=== PATIENT | female | born 1990 | race Caucasian/White ===

== ENCOUNTER → 2021-07-18 10:51 | Outpatient (BNVA) | payer MEDICAID, SELFPAY | PROVIDERS: PCP Family Medicine; Visit Provider Nurse Practitioner Gerontology ==

== ENCOUNTER 2023-08-04 13:21 | Outpatient (AMB) | payer BC, MEDICAID, SELFPAY ==
--- NOTE | 2023-08-04 13:31 | A.OFFPC_ITS ---
Vital Signs 08/04/23 13:35 Height 5 ft 5.5 in Weight 137 lb 6 oz BMI 22.5 BP 112/72 Blood Pressure Location Lt brachial Position Sitting Pulse 87 Pulse Source Pulse Oximeter Pulse Oximetry (%) 99 Oxygen Delivery Method Room Air Intake Visit Reasons: NPV requesting phy Intake Note: Patient is a new patient here to establish care for Hypothyroid. Transferring care from unknown. Medical records have not been requested and have not received. Dental Intern Required: No Control Systems Drafting Officer: Not Required per policy Accompanied by: Self / Same As Patient Allergies No Known Allergies [No Known Allergies*] Allergy (Verified 08/04/23 13:33) Tobacco use date assessed: 08/04/23 Dental Screening Dental Screen Date: 08/04/23 Did you have a dental visit in the last 12 months?: Yes Did you have a dental problem in the last 6 months where you did not have access to dental care?: No Was dental information given to patient?: Patient has dentist HPI HPI Comments History of Present Illness Details 32-year-old female past medical history significant for autoimmune thyroiditis. Patient currently on levothyroxine 100 mcg daily. Patient reports 17 weeks , takes vitamin daily, Follows with obgyn. Previously followed up Endocrinology, Patient reports thyroid function was WNL, refill sent on levothyroxine from obgyn. Patient denies need for refills at this time. Patient denies any acute concerns. Denies any chest pain, palpitations syncope. Does report some shortness of breath since states that OBGYN did her CBC and everything was within normal limits she is not anemic. Deferred labs at this time. Patient states in the future she would like to be referred to pain specialist for her history of varicose veins. Patient recommended compression socks may be a good idea during below she is working on her feet to prevent worsening varicose veins, like pain fatigue. Patient reports she does not like wearing socks. She likely will not be wearing any compression socks. Declined Flu shot. Previous PCP: in [facility] Pap smear: Followed by [facility], had this year. Eye exam:Recommended ever few years. [facility] Medical History Autoimmune thyroiditis Surgical History Hx of cholecystectomy Hx of eye surgery Family History (Updated 08/04/23 @ 13:54 by ISA Shin) Father Thyroid disease Mother Thyroid disease Social History (Updated 08/04/23 @ 13:55 by ISA Shin) Housing: House Alcohol intake: never Patient Tobacco Use Status: Never used Tobacco e-Cigarette/Vaping Use: Never Used Second Hand Smoke Exposure: No service: No Current occupational status: unemployed Cognitive needs: No Hearing needs: No Vision needs: No Questionnaire PHQ-9 Over the last 2 weeks, how often have you been bothered by any of the following problems? 1. Little interest or pleasure in doing things: not at all 2. Feeling down, depressed, or hopeless: not at all 3. Trouble falling or staying asleep, or sleeping too much: not at all 4. Feeling tired or having little energy: not at all 5. Poor appetite or overeating: not at all 6. Feeling bad about yourself - or that you are a failure or have let yourself or your family down: not at all 7. Trouble concentrating on things, such as reading the newspaper or watching television: not at all 8. Moving or speaking so slowly that other people could have noticed. Or the opposite - being so fidgety or restless that you have been moving around a lot more than usual: not at all 9. Thoughts that you would be better off or of hurting yourself in some way: not at all Total score: 0 Depression Screening Interpretation: Negative 48677 - PHQ-9 Billing: Yes Source: Developed by Drs. Navin Magallanes, Marisela Jones, Peter Oconnor and colleagues, with an educational norman from [employer]. Thrive Questionnaire Date Thrive assessed: 08/04/23 I am a: Patient What is your living situation today?: I have a steady place to live Within the past 12 months, did the food you bought not last and you didn't have the money to get more?: Never true Within the past 12 months, did you worry whether your food would run out before you got money to buy more?: Never true Do you have trouble paying for medicines?: No Do you have trouble getting transportation to medical appointments?: No Do you have trouble paying your heating and electricity bill?: No Do you have trouble taking care of your child, family member or friend?: No Do you have trouble with day-to-day activities such as bathing, preparing meals, shopping, managing finances, etc.?: No Are you currently unemployed and looking for a job?: No Are you interested in more education?: No Currently or been in a relationship where the following occur: no concerns reported AUDIT C Alcohol Use Questionnaire (AUDIT-C) 1. How often do you have a drink containing alcohol?: Never Total Score: 0 NEFTALY-7 AMB Questionnaire NEFTALY-7 Date NEFTALY - 7 assessed: 08/04/23 Feeling nervous, anxious, or on edge: 0 = Not at all Not being able to stop or control worryin = Not at all Worrying too much about different things: 0 = Not at all Trouble relaxin = Not at all Being so restless that it is hard to sit still: 0 = Not at all Becoming easily annoyed or irritable: 0 = Not at all Feeling afraid as if something awful might happen: 0 = Not at all Total NEFTALY-7 score (0-4 normal; 5-9 mild; 10-14 moderate; 15-21 severe): 0 Source: Developed by Drs. Navin Magallanes, Marisela Jones, Peter Oconnor and colleagues, with an educational norman from [employer]. NEFTALY-7 Assessment Billing NEFTALY-7 Assessment Tool: NEFTALY-7 Assessment 34392 Review of Systems Const Denies chills, Denies fatigue, Denies fever(s) and Denies poor appetite Eyes Denies no additional complaints ENT Reports Normal hearing present Card Denies chest pain, Denies syncope, Denies rapid heart rate and Denies dyspnea Resp Denies cough and Denies dyspnea GI Denies change in stool character, Denies constipation, Denies diarrhea, Denies nausea and Denies vomiting Denies urinary frequency, Denies dysuria and Denies urinary urgency Neuro Reports Normal hearing present, Denies confusion and Denies syncope Psych Denies confusion Endo Denies fatigue Physical exam (Primary Care) Vital Signs: Last Vital Signs Pulse 87 08/04/23 13:35 BP 112/72 08/04/23 13:35 Pulse Ox 99 08/04/23 13:35 Oxygen Delivery Method Room Air 08/04/23 13:35 BMI result Body Mass Index 22.5 Tobacco/Smoking Status: Tobacco use Status Tobacco use date assessed 08/04/23 08/04/23 13:39 Patient Tobacco Use Status Never used Tobacco 08/04/23 13:55 e-Cigarette/Vaping Use Never Used 08/04/23 13:55 PHQ-9: PHQ-9 Score PHQ-9: Total score 0 08/04/23 13:57 Depression Screening Interpretation: Negative Thrive Assessment: Date of Thrive Assessment Date Thrive assessed 08/04/23 08/04/23 13:39 Currently or been in a relationship where the following occur: no concerns reported Const General: No confusion Orientation/consciousness: No confusion HENMT Head: Yes normocephalic and Yes atraumatic Ears: external ears normal and TM's normal bilaterally General nose exam: Normal external nose present and Normal nasal mucous membranes and turbinates present Face and sinus: Yes normal facial exam and Yes sinuses nontender Mouth: moist mucous membranes Throat: Yes tonsils normal Eyes Conjunctivae: conjunctivae normal Sclerae: sclerae normal Pupils: Equal, round and reactive pupils present and Pupils normal by confrontation EOM: EOMs intact bilaterally Direct Ophthalmoscopy: normal light reflex Neck Neck: Yes no lymphadenopathy and Yes supple Thyroid: Thyroid normal Chest Chest palpation & inspection: normal inspection of the chest Resp Effort & Inspection: normal respiratory effort Auscultation: clear to auscultation bilaterally, no crackles, no rhonchi and no wheezes Cardio Rate: regular rate Rhythm: regular rhythm Peripheral pulses: radial pulses present and dorsalis pedis present GI Inspection: Yes normal to inspection Palpation (GI): Soft to palpation, nontender and No hepatosplenomegaly present Auscultation: normoactive bowel sounds Skin General skin exam: no rashes or lesions noted Neuro General: No confusion Cranial nerves: Yes Equal, round and reactive pupils present and Yes Normal hearing present Cognition (Neuro): normal cognition Gait exam (Neuro): Normal gait present Motor exam (neuro): 5/5 motor strength present throughout Deep tendon reflexes (DTR's): Right brachioradialis reflex intensity grade: 2+, Left brachioradialis reflex intensity grade: 2+, Right patellar reflex intensity grade: 2+ and Left patellar reflex intensity grade: 2+ Extrem General: No edema Office Procedures Flu Questionnaire Does the patient have a severe egg allergy?: No Does the patient have severe life threatening allergies?: No Does the patient have a fever or illness today?: No Has the patient ever had Guillain-[place] Syndrome?: No Has the patient ever had any past reaction to a flu shot?: No Immunizations flu vacc [id number] 6mos up(PF) 60 mcg(15 mcgx4)/0.5 mL IM syringe Performing Provider: ISA Shin [facility] Documented (not given) by: JOSE ROBERTO Ferguson on 08/04/23 13:40 Reason Not Given: Patient Refused Assessment and Plan Assessment & Plan (1) Autoimmune thyroiditis: Code(s): E06.3 - Autoimmune thyroiditis Plan: Continue on levothyroxine 100 mcg daily. (2) Varicose vein of leg: Comment: bilateral legs Code(s): I83.90 - Asymptomatic varicose veins of unspecified lower extremity Plan: Patient reports would like to be referred to vascular surgery following her , will reassess this at next physical exam. (3) Physical exam, annual: Code(s): Z00.00 - Encounter for general adult medical examination without abnormal findings Plan: Follow-up in 1 year sooner needed. (4) : Code(s): Z34.90 - Encounter for supervision of normal , unspecified, unspecified trimester Plan: Continue to follow with [facility] and continue on vitamins. Orders: Orders Influenza [id number] Immunization Today Z23 - Encounter for immunization Coding Level of Care Code New Pt Prev Care 18-39yr([id number] Diagnoses Autoimmune thyroiditis E06.3 Varicose vein of leg I83.90 Physical exam, annual Z00.00 Z34.90 Additional Codes NEFTALY-7 Assessment Billing - NEFTALY-7 Assessment Tool: NEFTALY-7 Assessment 94984 ([id number])
[2023-08-04 13:35] VITALS: BP 112/72; PULSE 87; O2SAT 99; BMI 22.5
== END 2023-08-04 14:01 | disposition home or self-care (01) ==
PROVIDERS: PCP Nurse Practitioner Family; Visit Provider Nurse Practitioner Family
DX: Z00.00 Encounter for general adult medical examination without abnormal findings (principal); E06.3 Autoimmune thyroiditis; I83.90 Asymptomatic varicose veins of unspecified lower extremity
CPT/HCPCS: 99385

== ENCOUNTER 2024-08-03 09:49 | Outpatient (REF) | payer BC, MEDICAID, SELFPAY ==
[2024-08-03 11:20] LABS: Hematocrit 40.9 % (37.0-47.0); Hemoglobin 13.9 g/dl (12.0-16.0); Mean Corpuscular Hemoglobin 28.8 pg (27.0-33.0); Mean Corpuscular Volume 84.9 fL (80.0-98.0); Mean Platelet Volume 9.2 fL (9.4-12.3); Platelet Count 249 X10*3/uL (160-400); Red Blood Count 4.82 X10*6/uL (4.20-5.50); Red Cell Distribution Width 13.2 % (11.0-16.0); White Blood Count 4.6 X10*3/uL (4.8-10.8)
[2024-08-03 11:53] LABS: Alanine Aminotransferase 13 U/L (0-31); Albumin Level 4.5 g/dL (3.5-5.0); Alkaline Phosphatase 53 U/L (39-117); Anion Gap 11 (12-20); Aspartate Amino Transferase 15 U/L (5-31); Bilirubin Direct 0.1 mg/dL (0.0-0.5); Bilirubin Total 0.4 mg/dL (0.0-1.0); Blood Urea Nitrogen 14 mg/dL (9-16); Calcium 9.4 mg/dL (8.4-10.2); Carbon Dioxide 24 mmol/L (22-29); Chloride 109 mmol/L (96-108); Cholesterol 224 mg/dL (<200); Estimated Glomerular Filt Rate > 60; Glucose Random 90 mg/dL (60-115); HDL Cholesterol 58 mg/dL (>40); LDL Cholesterol Calculated 148 mg/dL (<100); Sodium 140 mmol/L (135-145); Total Protein 7.7 g/dL (6.5-8.0); Triglycerides 90 mg/dL (<150)
[2024-08-03 12:10] LABS: Thyroid Stimulating Hormone 3.88 uIU/mL (0.32-4.0)
== END 2024-08-03 09:50 | disposition home or self-care (01) ==
LOC: HO.WFDLDS 09:49
PROVIDERS: Visit Provider Internal Medicine
DX: E06.3 Autoimmune thyroiditis (principal)
CPT/HCPCS: 36415; 80048; 80061; 80076; 84443; 85027

== ENCOUNTER 2024-08-05 10:59 | Outpatient (AMB) | payer MEDICAID, SELFPAY ==
--- NOTE | 2024-08-05 11:14 | MHC.PC.OV ---
Vital Signs 08/05/24 11:19 Height 5 ft 5.5 in Weight 142 lb 4 oz BMI 23.3 BP 112/70 Blood Pressure Location Lt brachial Position Sitting Pulse 70 Pulse Source Pulse Oximeter Pulse Oximetry (%) 98 Oxygen Delivery Method Room Air Intake Visit Reasons: pe Intake Note: Patient is here today for a physical and [facility] from [facility] Client Professional Required: No Production Line Solderer: Present Accompanied by: Dependent of Minor Dependent Allergies No Known Allergies [No Known Allergies*] Allergy (Verified 08/05/24 11:46) Medication List - Last Reconciled 08/05/24 by Will Love MD levothyroxine 75 mcg PO DAILY Tobacco use date assessed: 08/04/23 Dental Screening Dental Screen Date: 08/05/24 Did you have a dental visit in the last 12 months?: Yes Did you have a dental problem in the last 6 months where you did not have access to dental care?: No Was dental information given to patient?: Patient has dentist HPI pe HPI Details 33-year-old female presents to the office for an annual physical. Patient has history of hypothyroidism. She has been on thyroid replacement for many years. Both her parents had been diagnosed with thyroid cancer. In addition, under the left eye patient has a rash that she would like evaluated. Rash has been present for the past 2 weeks.. PFSH Medical History Autoimmune thyroiditis Surgical History Hx of cholecystectomy Hx of eye surgery Family History Father Thyroid disease Mother Thyroid disease Social History Housing: House Alcohol intake: never Patient Tobacco Use Status: Never used Tobacco e-Cigarette/Vaping Use: Never Used Second Hand Smoke Exposure: No service: No Current occupational status: unemployed Cognitive needs: No Hearing needs: No Vision needs: No Questionnaire PHQ-9 Over the last 2 weeks, how often have you been bothered by any of the following problems? 1. Little interest or pleasure in doing things: more than half the days 2. Feeling down, depressed, or hopeless: not at all 3. Trouble falling or staying asleep, or sleeping too much: not at all 4. Feeling tired or having little energy: not at all 5. Poor appetite or overeating: not at all 6. Feeling bad about yourself - or that you are a failure or have let yourself or your family down: not at all 7. Trouble concentrating on things, such as reading the newspaper or watching television: not at all 8. Moving or speaking so slowly that other people could have noticed. Or the opposite - being so fidgety or restless that you have been moving around a lot more than usual: not at all 9. Thoughts that you would be better off or of hurting yourself in some way: not at all Total score: 2 Depression Screening Interpretation: Negative Depression Screening Done: Yes Source: Developed by Drs. Navin Magallanes, Marisela Jones, Peter Oconnor and colleagues, with an educational norman from [employer]. Thrive Questionnaire Date Thrive assessed: 08/03/24 I am a: Patient What is your living situation today?: I have a steady place to live Within the past 12 months, did the food you bought not last and you didn't have the money to get more?: Never true Within the past 12 months, did you worry whether your food would run out before you got money to buy more?: Never true Do you have trouble paying for medicines?: No Do you have trouble getting transportation to medical appointments?: No Do you have trouble paying your heating and electricity bill?: No Do you have trouble taking care of your child, family member or friend?: No Do you have trouble with day-to-day activities such as bathing, preparing meals, shopping, managing finances, etc.?: No Are you currently unemployed and looking for a job?: No Are you interested in more education?: No Please select the resources that you would like help with: None Currently or been in a relationship where the following occur: No concerns reported THRIVE Score: 0 AUDIT C Alcohol Use Questionnaire (AUDIT-C) 1. How often do you have a drink containing alcohol?: Never Total Score: 0 NEFTALY-7 AMB Questionnaire NEFTALY-7 Date NEFTALY - 7 assessed: 08/05/24 Feeling nervous, anxious, or on edge: 0 = Not at all Not being able to stop or control worryin = Not at all Worrying too much about different things: 0 = Not at all Trouble relaxin = Not at all Being so restless that it is hard to sit still: 0 = Not at all Becoming easily annoyed or irritable: 0 = Not at all Feeling afraid as if something awful might happen: 0 = Not at all Total NEFTALY-7 score (0-4 normal; 5-9 mild; 10-14 moderate; 15-21 severe): 0 Source: Developed by Drs. Navin Magallanes, Marisela Jones, Peter Oconnor and colleagues, with an educational norman from [employer]. Physical exam (Primary Care) Vital Signs: Last Vital Signs Pulse 70 08/05/24 11:19 BP 112/70 08/05/24 11:19 Pulse Ox 98 08/05/24 11:19 Oxygen Delivery Method Room Air 08/05/24 11:19 Care Plan Goal for BP management: Blood pressure is in range. BMI result Body Mass Index 23.3 Tobacco/Smoking Status: Tobacco use Status Tobacco use date assessed 08/04/23 08/05/24 11:24 Patient Tobacco Use Status Never used Tobacco 08/05/24 11:24 e-Cigarette/Vaping Use Never Used 08/05/24 11:24 PHQ-9: PHQ-9 Score PHQ-9: Total score 2 08/05/24 11:24 Depression Screening Interpretation: Negative Thrive Assessment: Date of Thrive Assessment Date Thrive assessed 08/03/24 08/05/24 11:24 Currently or been in a relationship where the following occur: No concerns reported Const General: cooperative and healthy appearing Nutritional Appearance: well nourished Orientation/consciousness: patient oriented x3 Limitations: no limitations HENMT Other: Face: Below the left eye, 2 cm linear erythematous lesion with dry scale. Head: Yes normal to inspection Eyes General: appearance normal, both eyes and all related structures Neck Other: Supra sternal notch fullness moving on deglutition. This is consistent with an enlarged thyroid gland. Neck: Yes normal visual inspection Chest Chest palpation & inspection: normal palpation of entire chest wall Resp Effort & Inspection: normal respiratory effort Neuro General: patient oriented x3 Coding Level of Care Code Est Pt Level 4 (84461) Est Pt Prev Care 18-39y(04117) Diagnoses Goiter E04.9 Rash R21 Physical exam, annual Z00.00 Assessment & Plan Assessment & Plan (1) Goiter: Code(s): E04.9 - Nontoxic goiter, unspecified Plan: Ultrasound of the thyroid has been requested. Patient is euthyroid and Synthroid at the same dosage has been prescribed. (2) Rash: Code(s): R21 - Rash and other nonspecific skin eruption Plan: Hydrocortisone 2-1/2% cream has been ordered. Rash is probably allergic in etiology. (3) Physical exam, annual: Code(s): Z00.00 - Encounter for general adult medical examination without abnormal findings Plan: Blood work has been reviewed. Patient declines flu vaccine. Orders: Orders US soft tiss head and/or neck Today E04.9 - Nontoxic goiter, unspecified Medications: New levothyroxine 75 mcg PO DAILY 90 tabs 1RF hydrocortisone 2.5% 1 appl topical BID PRN 20 grams 0RF skin irritation
[2024-08-05 11:19] VITALS: BP 112/70; PULSE 70; O2SAT 98; BMI 23.3
== END 2024-08-05 11:48 | disposition home or self-care (01) ==
PROVIDERS: PCP Internal Medicine; Visit Provider Internal Medicine
DX: Z00.00 Encounter for general adult medical examination without abnormal findings (principal); E04.9 Nontoxic goiter, unspecified; R21 Rash and other nonspecific skin eruption

== ENCOUNTER → 2024-08-05 10:59 | Outpatient (BNVA) | payer BC, MEDICAID, SELFPAY | PROVIDERS: PCP Internal Medicine; Visit Provider Internal Medicine | DX: Z00.01 Encounter for general adult medical examination with abnormal findings (principal); E04.9 Nontoxic goiter, unspecified; R21 Rash and other nonspecific skin eruption | CPT/HCPCS: 96127; 99212; 99395 ==

== ENCOUNTER 2024-08-12 12:49 | Outpatient (REF) | payer BC, MEDICAID, SELFPAY ==
--- NOTE | ~2024-08-12 | US_ITS ---
EXAMINATION: US THYROID CLINICAL INFORMATION: Nontoxic goiter, unspecified. COMPARISON: None available. TECHNIQUE: Linear transducer grayscale and color Doppler examination with attention to the region of the thyroid. FINDINGS: SIZE: Measurements of the thyroid lobes and nodules are given in sagittal, anteroposterior and transverse dimensions respectively. Right Thyroid Lobe: 4.6 x 1.4 x 1.4 cm, volume 4.8 mL. Parenchyma: The gland echotexture is heterogeneous. Thyroid vascularity is normal. Left Thyroid Lobe: 4.2 x 1.3 x 1.5 cm, volume 4.3 mL. Parenchyma: The gland echotexture is heterogeneous. Thyroid vascularity is normal. Isthmus: 0.4 cm in maximum AP dimension. No focal thyroid nodule is seen. NODES: No lymphadenopathy is seen in the tissue surrounding the thyroid gland. US/US thyroid IMPRESSION: Diffusely heterogeneous thyroid gland. No suspicious thyroid nodules appreciated. ACR TI-RADS RECOMMENDATION REFERENCE: Ultrasound-guided fine-needle aspiration, followup ultrasound, no further follow up. * TR1 (0 point) and TR2 (2 points): No FNA or follow up. * TR3 (3 points): FNA if more than or equal to 2.5 cm in maximum dimension, followup ultrasound in 1, 3 and 5 years if 1.5 to 2.4 cm in maximum dimension. * TR4 (4-6 points): FNA if more than or equal to 1.5 cm in maximum dimension, followup ultrasound in 1, 2, 3 and 5 years if 1 to 1.4 cm in maximum dimension. * TR5 (more than or equal to 7 points): FNA if more than or equal to 1 cm in maximum dimension, followup ultrasound every year for 5 years if 0.5 to 0.9 cm in maximum dimension. * TR3, TR4 or TR5 nodules that are below the size threshold for followup receive no follow up. Electronically signed by: Liset Medina MD 10/19/2024 07:23 AM [facility] [place]
== END 2024-08-12 12:50 | disposition home or self-care (01) ==
LOC: HO.US 12:49
PROVIDERS: PCP Internal Medicine; Visit Provider Internal Medicine
DX: E04.9 Nontoxic goiter, unspecified (principal)
CPT/HCPCS: 76536

== ENCOUNTER 2025-10-13 10:08 | Outpatient (AMB) | payer BC, MEDICAID, SELFPAY ==
--- NOTE | 2025-10-13 10:13 | A.OFFPC_ITS ---
Vital Signs 10/13/25 10:15 Height 5 ft 5.5 in Weight 138 lb 2 oz BMI 22.6 BP 132/70 Blood Pressure Location Lt brachial Position Sitting Pulse 52 Pulse Source Pulse Oximeter Temp 97.3 F Temp Source Temporal Artery Scan Pulse Oximetry (%) 98 Oxygen Delivery Method Room Air Intake Visit Reasons: PE - see comments Intake Note: Patient is here today for a physical. Body And Frame Technician Required: No Geothermal System Installer: Present Accompanied by: Dependent of Minor Dependent Allergies No Known Allergies (No Known Allergies*) Allergy (Verified 10/19/25 09:22) Medication List - Last Reconciled 10/19/25 by Will Love MD levothyroxine 75 mcg PO DAILY Tobacco use date assessed: 10/13/25 Dental Screening Dental Screen Date: 10/13/25 Did you have a dental visit in the last 12 months?: Yes Did you have a dental problem in the last 6 months where you did not have access to dental care?: No Was dental information given to patient?: Patient has dentist HPI HPI Comments History of Present Illness Details History of Present Illness - The patient is a 35 year old female pr esenting with a physical examination. - The patient has been experiencing fing er swelling and stiffness for over a year, which started after her last physical. - The issue involves tenderness, swellin g, and inability to bend the fingers, which she also describes as trigger finger. - She experiences stiffness upon waking and sometimes cannot wash her face or hold a pen, and her handwriting has worsened. - The patient also experiences intermitt ent symptoms in her knees and has a history of foot issues for which she has seen an orthopedist. - She has been seeing an orthopedist and has received approximately 14 steroid injections in her fingers over the past year; these provide temporary relief but the symptoms return. - An MRI for suspected carpal tunnel syn drome was negative. - The patient has a history of hypothyro idism and has been on thyroid replacement medication for many years, which was continued as of her last visit. - A past thyroid ultrasound showed a sma ll nodule, but no fine-needle aspiration or removal was performed. - Past lab work showed that her choleste rol was slightly high. - Her menstrual cycles are irregular, so metimes occurring twice a month. - One of her parents was diagnosed with thyroid cancer. - The patient reports no family history of rheumatological issues. Social History - Substance Use: Denies smoking and alco hol use. - Functional Status: The patient is a ho memaker and is able to perform home chores such as cleaning dishes and doing laundry despite her hand stiffness. - Family Status: The patient has four ch ildren, with the youngest being almost two years old. Results - Labs: Previous blood work from August of last year showed slightly elevated cholesterol. - Tests and Diagnostics: A previous thyr oid ultrasound showed a small nodule. - An MRI of the hand/wrist ruled out car pal tunnel syndrome. [facility] Medical History Autoimmune thyroiditis Surgical History (Updated 10/13/25 @ 10:20 by JOSE ROBERTO Ferguson) History of varicose vein stripping Hx of cholecystectomy Hx of eye surgery Family History Father Thyroid disease Mother Thyroid disease Social History Housing: House Alcohol intake: never Patient Tobacco Use Status: Never used Tobacco e-Cigarette/Vaping Use: Never Used Second Hand Smoke Exposure: No service: No Current occupational status: unemployed Cognitive needs: No Hearing needs: No Vision needs: No Questionnaire PHQ-9 Over the last 2 weeks, how often have you been bothered by any of the following problems? 1. Little interest or pleasure in doing things: more than half the days 2. Feeling down, depressed, or hopeless: not at all 3. Trouble falling or staying asleep, or sleeping too much: not at all 4. Feeling tired or having little energy: not at all 5. Poor appetite or overeating: not at all 6. Feeling bad about yourself - or that you are a failure or have let yourself or your family down: not at all 7. Trouble concentrating on things, such as reading the newspaper or watching television: not at all 8. Moving or speaking so slowly that other people could have noticed. Or the opposite - being so fidgety or restless that you have been moving around a lot more than usual: not at all 9. Thoughts that you would be better off or of hurting yourself in some way: not at all Total score: 2 Depression Screening Interpretation: Positive Depression Screening Done: Yes Source: Developed by Drs. Navin Magallanes, Peter Reyes and colleagues, with an educational norman from [employer]. Thrive Questionnaire Date Thrive assessed: 10/13/25 I am a: Patient What is your living situation today?: I have a steady place to live Within the past 12 months, did the food you bought not last and you didn't have the money to get more?: Never true Within the past 12 months, did you worry whether your food would run out before you got money to buy more?: Never true Do you have trouble paying for medicines?: No Do you have trouble getting transportation to medical appointments?: No Do you have trouble paying your heating and electricity bill?: No Do you have trouble taking care of your child, family member or friend?: No Do you have trouble with day-to-day activities such as bathing, preparing meals, shopping, managing finances, etc.?: No Are you currently unemployed and looking for a job?: No Are you interested in more education?: No Please select the resources that you would like help with: None Currently or been in a relationship where the following occur: No concerns reported THRIVE Score: 0 AUDIT C Alcohol Use Questionnaire (AUDIT-C) 1. How often do you have a drink containing alcohol?: Never Total Score: 0 NEFTALY-7 AMB Questionnaire NEFTALY-7 Date NEFTALY - 7 assessed: 10/13/25 Feeling nervous, anxious, or on edge: 0 = Not at all Not being able to stop or control worryin = Not at all Worrying too much about different things: 0 = Not at all Trouble relaxin = Not at all Being so restless that it is hard to sit still: 0 = Not at all Becoming easily annoyed or irritable: 0 = Not at all Feeling afraid as if something awful might happen: 0 = Not at all Total NEFTALY-7 score (0-4 normal; 5-9 mild; 10-14 moderate; 15-21 severe): 0 Source: Developed by Marisela Kinney Kurt Kroenke and colleagues, with an educational norman from [employer]. Review of Systems Narrative Review of Systems - General: Denies constitutional symptoms. Inquires about potential vitamin deficiency. - Musculoskeletal: Reports finger swelling, stiffness, and pain for over a year, with associated trigger finger, making it difficult to bend them. - Reports intermittent knee symptoms. - Reports past foot pain which has since improved, and denies current joint stiffness in the feet. - Reports morning stiffness so severe she sometimes cannot wash her face. - Genitourinary: Reports irregular menstrual cycles, sometimes occurring twice per month. - All other systems reviewed and are negative. Physical exam (Primary Care) Vital Signs: Last Vital Signs Temp 97.3 F 10/13/25 10:15 Pulse 52 10/13/25 10:15 BP 132/70 10/13/25 10:15 Pulse Ox 98 10/13/25 10:15 Oxygen Delivery Method Room Air 10/13/25 10:15 BMI result Body Mass Index 22.6 Tobacco/Smoking Status: Tobacco use Status Tobacco use date assessed 10/13/25 10/13/25 10:21 Patient Tobacco Use Status Never used Tobacco 10/13/25 10:21 e-Cigarette/Vaping Use Never Used 10/13/25 10:21 PHQ-9: PHQ-9 Score PHQ-9: Total score 2 10/13/25 10:53 Depression Screening Interpretation: Positive Thrive Assessment: Date of Thrive Assessment Date Thrive assessed 10/13/25 10/13/25 10:21 Currently or been in a relationship where the following occur: No concerns reported Narrative Physical Exam General: Appearance normal, both eyes and all related structures Nutritional Appearance: Well nourished Orientation/consciousness: Patient oriented x3 Limitations: Stiffness in fingers, difficulty bending fingers, and occasional knee issues Head: Normal to inspection Neck: Normal visual inspection, previous ultrasound showed small nodule, no aspiration done Chest: Normal palpation of entire chest wall Respiratory: Normal respiratory effort Neurology: Patient oriented x3 Coding Level of Care Code Est Pt Prev Care [id number]) Add On Preventative Visit Only Diagnoses Autoimmune thyroiditis E06.3 Assessment & Plan Assessment & Plan (1) Autoimmune thyroiditis: Code(s): E06.3 - Autoimmune thyroiditis Category: Medical Plan Plan - Will order fasting lab work to include a lipid panel, thyroid function tests, inflammatory markers, vitamin B12, folate, and vitamin D levels. - The patient is scheduled to see a ditch digger next week for further evaluation of her hand symptoms; this was a self-referral. - The differential diagnosis for her symptoms includes rheumatoid arthritis, connective tissue disease, and other inflammatory diseases. - She was advised to stay in contact via the patient portal to follow up on the rheumatology consultation and lab results. - It was noted that the patient is too young for routine screening procedures like a mammogram at this time. - She declined a flu shot. Discussion Notes I discussed with the patient her symptoms of chronic, progressive hand stiffness and swelling. I explained that an underlying inflammatory disease, such as rheumatoid arthritis or a connective tissue disorder, is possible and warrants further investigation. We will proceed with blood work to check for inflammatory markers, thyroid function, and vitamin levels. I supported her decision to see a ditch digger and encouraged her to keep me informed of the outcome of that consultation. I emphasized the importance of establishing a clear diagnosis rather than continuing with repeated steroid injections without one. I provided reassurance that treatments are available once a diagnosis is determined, and the condition could be temporary. We also discussed communication methods, and I advised her to use the patient portal for easier access and follow-up. Patient Instructions - Go for fasting blood work as ordered. You should not eat or drink anything except water after midnight the night before the test. - Keep your appointment with the ditch digger next week to evaluate your hand symptoms. - Contact us through the patient portal to let us know what the ditch digger says and to follow up on your lab results. - You do not need a paper order for the blood test; it has been sent electronically. This is a walk-in service, but you should check the hours of the lab location in [place]. Orders: Orders Basic Metabolic Panel 10/17/25 E06.3 - Autoimmune thyroiditis Liver Panel 10/17/25 E06.3 - Autoimmune thyroiditis Thyroid Stimulating Hormone 10/17/25 E06.3 - Autoimmune thyroiditis Creatine Kinase Total 10/17/25 E06.3 - Autoimmune thyroiditis Complete Blood Count no Diff 10/17/25 E06.3 - Autoimmune thyroiditis Lipid Panel 10/17/25 E0.3 - Autoimmune thyroiditis UA and rflx microscopic 10/17/25 E06.3 - Autoimmune thyroiditis Vitamin D 25-OH (D2 and D3) 10/17/25 E06.3 - Autoimmune thyroiditis Vitamin B12 and Folate 10/17/25 E06.3 - Autoimmune thyroiditis Erythrocyte Sedimentation Rate 10/17/25 E06.3 - Autoimmune thyroiditis
[2025-10-13 10:15] VITALS: BP 132/70; PULSE 52; TEMP 36.3; O2SAT 98; BMI 22.6
== END 2025-10-13 11:10 | disposition home or self-care (01) ==
LOC: HO.HMCH 10:09
PROVIDERS: PCP Internal Medicine; Visit Provider Internal Medicine
DX: Z00.00 Encounter for general adult medical examination without abnormal findings (principal); E06.3 Autoimmune thyroiditis

== ENCOUNTER 2025-10-17 09:31 | Outpatient (REF) | payer BC, MEDICAID, SELFPAY ==
[2025-10-17 11:18] LABS: Hematocrit 44.7 % (37.0-47.0); Hemoglobin 15.1 g/dl (12.0-16.0); Mean Corpuscular HGB Conc 33.8 g/dl (31.0-35.0); Mean Corpuscular Hemoglobin 29.7 pg (27.0-33.0); Mean Corpuscular Volume 88.0 fL (80.0-98.0); NRBC Abs Auto 0.000 X10*3/uL (0.0-0.012); NRBC Pct Auto 0.0 /100WBC (0.0-0.2); Platelet Count 296 X10*3/uL (160-400); Red Blood Count 5.08 X10*6/uL (4.20-5.50); White Blood Count 6.3 X10*3/uL (4.8-10.8)
[2025-10-17 11:34] LABS: Alanine Aminotransferase 20 U/L (0-31); Albumin Level 4.8 g/dL (3.5-5.0); Alkaline Phosphatase 67 U/L (39-117); Anion Gap 12 (12-20); Aspartate Amino Transferase 22 U/L (5-31); Blood Urea Nitrogen 15 mg/dL (9-16); Calcium 9.6 mg/dL (8.4-10.2); Carbon Dioxide 28 mmol/L (22-29); Chloride 105 mmol/L (96-108); Cholesterol 284 mg/dL (<200); Estimated Glomerular Filt Rate > 60; HDL Cholesterol 86 mg/dL (>40); Potassium 3.9 mmol/L (3.3-5.1); Sodium 141 mmol/L (135-145); Total Protein 8.0 g/dL (6.5-8.0); Triglycerides 85 mg/dL (<150)
[2025-10-17 11:51] LABS: Thyroid Stimulating Hormone 2.55 uIU/mL (0.32-4.0)
[2025-10-17 12:11] LABS: Folate 7.3 ng/mL (> or = 4.0); Vitamin B12 495 pg/mL (200-900)
== END 2025-10-17 09:32 | disposition home or self-care (01) ==
LOC: HO.WFDLDS 09:31
PROVIDERS: Visit Provider Internal Medicine
DX: E06.3 Autoimmune thyroiditis (principal); Z13.21 Encounter for screening for nutritional disorder
CPT/HCPCS: 36415; 80048; 80061; 80076; 82306; 82550; 82607; 82746; 84443; 85027; 85652